=== PATIENT | male | born 1945 | race African-American/Black ===

== ENCOUNTER 2018-05-15 09:06 | Inpatient (IN) | payer OTHER ==
[2018-05-15 09:45] VITALS: BMI 28.2
--- NOTE | 2018-05-15 14:41 | HP ---
COWS - Scale Resting Pulse: 0= [place] 80 or Below Sweatin= Chills/Flushing Restless Observation: 3= Extraneous Movement Pupil Size: 1= Pupils >than Normal Bone or Joint Aches: 2= Severe Diffuse Aches Runny Nose/ Eye Tearin= Runny Nose/Eyes GI Upset > 30mins: 2= Nausea/Diarrhea Tremor Observation: 2= Slight Tremor Visible Yawning Observation: 1= 1-2x During Session Anxiety or Irritability: 2=Irritable/Anxious Goose Flesh Skin: 0=Smooth Skin COWS Score: 16 Admission ROS S - HPI Chief Complaint: i need help to stop using oxycontin and fantanyl patch,send in by pdm, never been in detox before requested by pmd for detox see attached letter htn, [place] both eyes knee replacemant left 10/2014,right 12/2014 arthosopic surgery left shoulder in 2015 needed help to stop using Allergies/Adverse Reactions: Allergies Allergy/AdvReac Type Severity Reaction Status Date / Time penicillin G Allergy Severe Rash Verified 05/15/18 10:13 History of Present Illness: this 72 years old male with oxycontin dependence,and fatanyl patch; has letter from pmd for patient to be detoxed Exam Limitations: No Limitations - Ebola screening Have you traveled outside of the country in the last 21 days: No Have you had contact with anyone from an Ebola affected area: No Have you been sick,other than usual withdrawal symptoms: No Do you have a fever: No - Review of Systems Constitutional: Chills, Loss of Appetite, Malaise, Night Sweats, Changes in sleep, Weakness EENT: reports: Tearing, Nose Congestion Respiratory: reports: No Symptoms reported Cardiac: reports: No Symptoms Reported GI: reports: Nausea, Poor Appetite, Abdominal cramping : reports: No Symptoms Reported Musculoskeletal: reports: Back Pain, Joint Pain, Muscle Pain, Joint Stiffness (s /p bilaterl knee replacement arthroscopic surgery left shoulder) Integumentary: reports: Dryness Neuro: reports: No Symptoms reported, Headache, Tremors Endocrine: reports: No Symptoms Reported Hematology: reports: No Symptoms Reported Psychiatric: reports: No Sypmtoms Reported, Judgement Intact, Mood/Affect Appropiate, Orientated x3 Patient History - Patient Medical History Hx Anemia: No Hx Asthma: No Hx Chronic Obstructive Pulmonary Disease (COPD): No Hx Cancer: No Hx Cardiac Disorders: No Hx Congestive Heart Failure: No Hx Hypertension: Yes (on med) Hx Hypercholesterolemia: No Hx Pacemaker: No HX Cerebrovascular Accident: No Hx Seizures: No Hx Dementia: No Hx Diabetes: No Hx Gastrointestinal Disorders: No Hx Liver Disease: No Hx Genitourinary Disorders: No Hx Sexually Transmitted Disorders: No Hx Renal Disease (ESRD): No Hx Thyroid Disease: No Hx Human Immunodeficiency Virus (HIV): No (last 2016 negative) Hx Hepatitis C: No Hx Depression: No Hx Suicide Attempt: No Hx Bipolar Disorder: No Hx Schizophrenia: No Other Medical History: no suicidal ,no homicidal - Patient Surgical History Past Surgical History: Yes Hx Neurologic Surgery: No Hx Cataract Extraction: No Hx Cardiac Surgery: No Hx Lung Surgery: No Hx Breast Surgery: No Hx Breast Biopsy: No Hx Abdominal Surgery: No Hx Appendectomy: No Hx Cholecystectomy: No Hx Genitourinary Surgery: No Hx Section: No Hx Orthopedic Surgery: Yes (bilateral knee replacement/left shoulder) Anesthesia Reaction: No - PPD History Previous Implant?: Yes Documented Results: Negative w/o proof Implanted On Prior R Admission?: No PPD to be Administered?: Yes - Smoking Cessation Smoking history: Former smoker Have you smoked in the past 12 months: No If you are a former smoker, when did you quit?: 2001 Hx Chewing Tobacco Use: No Initiated information on smoking cessation: No - Substance & Tx. History Hx Alcohol Use: Yes Hx Substance Use: Yes Substance Use Type: Opiates Hx Substance Use Treatment: No - Substances Abused Oxycodone (prescribed) Route: Oral Frequency: Daily Amount used: 2 tabs. (10-325 mg.) QID Age of first use: 66 Date of Last Use: 05/15/18 Fentanyl patch (prescribed) Route: patch Amount used: 75 mcg. q3 days Age of first use: 67 Date of Last Use: 05/14/18 Family Disease History - Family Disease History Family History: Denies Family Disease History: Other: Father (alcohol,) Admission Physical Exam [facility] - Vital Signs Vital Signs: Vital Signs - 24 hr 05/15/18 09:42 Temperature 98.9 F Pulse Rate 80 Respiratory 18 Rate Blood Pressure 99/68 - Physical General Appearance: Yes: Moderate Distress, Tremorous, Irritable, Sweating, Anxious HEENTM: Yes: Normal ENT Inspection, JAREN, Pharynx Normal Respiratory: Yes: Lungs Clear, Normal Breath Sounds, No Respiratory Distress Neck: Yes: Within Normal Limits, Trachea in good position, Thyroid enlarged Breast: Yes: Within Normal Limits Cardiology: Yes: Within Normal Limits, Regular Rhythm, Regular Rate, S1, S2 Abdominal: Yes: Within Normal Limits, Normal Bowel Sounds, Non Tender, Soft Genitourinary: Yes: Within Normal Limits Back: Yes: Muscle Spasm Musculoskeletal: Yes: Back pain, Muscle Pain Extremities: Yes: Normal Range of Motion, Tremors, Other (scars both knees) Neurological: Yes: business supervisor II-XII NML intact, Fully Oriented, Alert, Motor Strength 5/5 Integumentary: Yes: Dry Lymphatic: Yes: Within Normal Limits - Diagnostic (1) Opioid dependence with withdrawal Current Visit: Yes Status: Acute (2) Glaucoma, both eyes Current Visit: Yes Status: Acute (3) Essential hypertension Current Visit: Yes Status: Acute (4) Knee joint replacement status Current Visit: Yes Status: Acute Cleared for Admission [facility] - Detox or Rehab [facility] Level of Care: Medically Managed Detox Regimen/Protocol: Methadone [facility] Breath Alcohol Content Breath Alcohol Content: 0 Urine Drug Screen - Results Drug Screen Negative: No Urine Drug Screen Results: OXY-Oxycodone, FEN-Fentanyl
[2018-05-15] MEDS ORDERED: P-EPHED 60MG/TRIPROLIDI 2.5MG TABLET PO PRN (14:53)
[2018-05-15] MEDS ORDERED: guaiFENesin/D-METHORPHAN HB 10 ML UNIT-DOSE CUPS PO PRN (14:53)
[2018-05-15] MEDS ORDERED: LOPERAMIDE HCL 2 MG CAPSULE PO PRN (14:53)
[2018-05-15] MEDS ORDERED: MAG HYDROX/AL HYDROX/SIMETH 30 ML UNIT-DOSE CUP PO PRN (14:53)
[2018-05-15] MEDS ORDERED: MAGNESIUM CITRATE 300 ML BOTTLE PO PRN (14:53)
[2018-05-15] MEDS ORDERED: MAGNESIUM HYDROX 2400MG/30ML ORAL SUSPENSION 30 ML CUP PO PRN (14:53)
[2018-05-15] MEDS ORDERED: MENTHOL/PHENOL 1 EACH UD MM PRN (14:53)
[2018-05-15] MEDS ORDERED: METHADONE HCL 10 MG TABLET (FOR DETOX USE ONLY) PO ONE ×2 (15:30→23:00)
--- NOTE | 2018-05-15 17:42 | EKG ---
Test Reason : Blood Pressure : / mmHG Vent. Rate : 061 BPM Atrial Rate : 061 BPM P-R Int : 212 ms QRS Dur : 098 ms QT Int : 402 ms P-R-T Axes : 046 -28 016 degrees QTc Int : 404 ms SINUS RHYTHM WITH 1ST DEGREE A-V BLOCK POSSIBLE LEFT ATRIAL ENLARGEMENT BORDERLINE ECG NO PREVIOUS ECGS AVAILABLE Confirmed by Lizandro Sosa MD ([id number]) on 05/15/2018 5:41:37 PM Referred By: Confirmed By:Lizandro Sosa MD
[2018-05-15 20:58] LABS: URINE APPEARANCE CLEAR; URINE BILIRUBIN NEGATIVE (<2.0 mg/dL); URINE COLOR LTYELLOW; URINE GLUCOSE (UA) NEGATIVE (NEGATIVE); URINE KETONE NEGATIVE (NEGATIVE); URINE LEUK ESTERASE NEGATIVE (NEGATIVE); URINE NITRITE NEGATIVE (NEGATIVE); URINE PROTEIN NEGATIVE (NEGATIVE); URINE UROBILINOGEN NEGATIVE mg/dL (0.2-1.0)
[2018-05-15] MEDS: diazePAM 5 MG TABLET PO PRN (21:23)
[2018-05-15] MEDS: IBUPROFEN 400 MG TABLET (FP) PO PRN (21:23)
[2018-05-15] MEDS: LATANOPROST 0.005% OPHTH SOLN 2.5ML BOTTLE OU SCH (21:26)
[2018-05-15] MEDS: THIAMINE HCL 100 MG TABLET (FP) PO SCH (21:26)
[2018-05-15] MEDS: BRIMONIDINE TARTRATE 0.15% OPHTHALMIC 5 ML BOTTLE OU SCH (21:27)
[2018-05-15] MEDS ORDERED: MELATONIN 5 MG TABLETS PO PRN (22:00)
[2018-05-16] MEDS ORDERED: METHADONE HCL 10 MG TABLET (FOR DETOX USE ONLY) PO ONE (10:00)
[2018-05-16] MEDS: COLCHICINE 0.6 MG TABLET (FP) PO SCH (10:35)
[2018-05-16] MEDS: amLODIPine BESYLATE 10 MG TABLET (FP) PO SCH (10:36)
[2018-05-16] MEDS: BRIMONIDINE TARTRATE 0.15% OPHTHALMIC 5 ML BOTTLE OU SCH ×2 (10:36→21:02)
[2018-05-16] MEDS: PRENATAL VITAMINS W/ FOLIC ACID TABLET (FP) PO SCH (10:36)
[2018-05-16] MEDS: ACETAMINOPHEN 325 MG TABLET (FP) PO PRN (10:36)
[2018-05-16] MEDS: diazePAM 5 MG TABLET PO PRN ×2 (10:36→21:01)
--- NOTE | 2018-05-16 12:04 | PN ---
[facility] COWS - Scale Resting Pulse: 1= [place] 81-100 Sweatin= Chills/Flushing Restless Observation: 1= Difficult to Sit Still Pupil Size: 1= Pupils >than Normal Bone or Joint Aches: 2= Severe Diffuse Aches Runny Nose/ Eye Tearin= Runny Nose/Eyes GI Upset > 30mins: 1= Stomach Cramp Tremor Observation of Outstretched Hands: 1= Tremor [place], Not Seen Yawning Observation: 0= None Anxiety or Irritability: 2=Irritable/Anxious Goose Flesh Skin: 0=Smooth Skin COWS Score: 12 [facility] Progress Note (SOAP) Subjective: interrupted sleep, sweats, , headache, lbp,, eber knee pains Objective: 05/16/18 12:03 Vital Signs Temperature 97.5 F L 05/16/18 09:28 Pulse Rate 89 05/16/18 09:28 Respiratory Rate 18 05/16/18 09:28 Blood Pressure 106/72 05/16/18 09:28 O2 Sat by Pulse Oximetry (%) Laboratory Tests 05/15/18 15:58 Urine Color Ltyellow Urine Appearance Clear Urine pH 5.0 Ur Specific [place] 1.010 Urine Protein Negative Urine Glucose (UA) Negative Urine Ketones Negative Urine Blood Negative Urine Nitrite Negative Urine Bilirubin Negative Urine Urobilinogen Negative Ur Leukocyte Esterase Negative pending labs pt aox3 in nad ambulting Assessment: 05/16/18 12:04 withdrawaL SX'S Plan: CONT. DETOX INCREASE FLUIDS F/UP PENDING LABS
[2018-05-16 14:22] LABS: HEMOGLOBIN 12.2 GM/dL (11.7-16.9); MCH 25.1 pg (25.7-33.7); MCHC 30.6 g/dl (32.0-35.9); MEAN PLT VOLUME 10.1 fl (7.5-11.1); PLATELET COUNT 184 K/MM3 (134-434); RBC 4.87 M/mm3 (4.00-5.60); RDW 14.3 % (11.9-15.9); WHITE BLOOD COUNT 6.6 K/mm3 (4.0-10.0)
[2018-05-16 15:03] LABS: ALBUMIN 3.7 g/dl (3.4-5.0); ALK PHOS 80 U/L (45-117); ANION GAP 8 MMOL/L (8-16); BILIRUBIN,TOTAL 0.3 mg/dL (0.2-1); BLOOD UREA NITROGEN 20 mg/dL (7-18); CALCIUM 9.5 mg/dL (8.5-10.1); CHLORIDE 108 mmol/L (98-107); CO2 26 mmol/L (21-32); CREATININE 1.1 mg/dL (0.55-1.3); GLUCOSE,RANDOM 86 mg/dL (74-106); POTASSIUM 4.4 mmol/L (3.5-5.1); SGOT/AST 24 U/L (15-37); SGPT/ALT 29 U/L (13-61); SODIUM 142 mmol/L (136-145); TOT PROT 7.8 g/dl (6.4-8.2)
[2018-05-16] MEDS: THIAMINE HCL 100 MG TABLET (FP) PO SCH (21:01)
[2018-05-16] MEDS: IBUPROFEN 400 MG TABLET (FP) PO PRN (21:01)
[2018-05-16] MEDS: LATANOPROST 0.005% OPHTH SOLN 2.5ML BOTTLE OU SCH (21:03)
[2018-05-17] MEDS: diazePAM 5 MG TABLET PO PRN ×2 (04:15→10:32)
[2018-05-17] MEDS: IBUPROFEN 400 MG TABLET (FP) PO PRN (04:15)
[2018-05-17] MEDS: ACETAMINOPHEN 325 MG TABLET (FP) PO PRN ×2 (09:51→22:21)
[2018-05-17] MEDS ORDERED: METHADONE HCL 5 MG TABLET (FOR DETOX USE ONLY) PO ONE (10:00)
[2018-05-17] MEDS: PRENATAL VITAMINS W/ FOLIC ACID TABLET (FP) PO SCH (10:29)
[2018-05-17] MEDS: amLODIPine BESYLATE 10 MG TABLET (FP) PO SCH (10:29)
[2018-05-17] MEDS: COLCHICINE 0.6 MG TABLET (FP) PO SCH (10:29)
[2018-05-17] MEDS: BRIMONIDINE TARTRATE 0.15% OPHTHALMIC 5 ML BOTTLE OU SCH ×2 (10:29→22:19)
[2018-05-17] MEDS ORDERED: BACLOFEN 10 MG TABLET (FP) PO ONE (10:30)
[2018-05-17] MEDS ORDERED: cloNIDine HCL 0.1 MG TABLET PO ONE (10:31)
--- NOTE | 2018-05-17 12:45 | PN ---
S COWS - Scale Resting Pulse: 1= [place] 81-100 Sweatin= Chills/Flushing Restless Observation: 1= Difficult to Sit Still Pupil Size: 1= Pupils >than Normal Bone or Joint Aches: 2= Severe Diffuse Aches Runny Nose/ Eye Tearin= Nasal Congestion GI Upset > 30mins: 1= Stomach Cramp Tremor Observation of Outstretched Hands: 1= Tremor [place], Not Seen Yawning Observation: 1= 1-2x During Session Anxiety or Irritability: 1=Feels Anxious/Irritable Goose Flesh Skin: 0=Smooth Skin COWS Score: 11 [facility] Progress Note (SOAP) Subjective: body ache joints pain tremor sweat bilaterally knees replacement taking opioid based pain killer x 6-7 years recommend methadone or suboxone program Objective: 05/17/18 12:46 Vital Signs Temperature 97.7 F 05/17/18 09:43 Pulse Rate 84 05/17/18 09:43 Respiratory Rate 19 05/17/18 09:43 Blood Pressure 141/91 05/17/18 09:43 O2 Sat by Pulse Oximetry (%) Laboratory Last Values WBC 6.6 K/mm3 (4.0-10.0) 05/16/18 07:00 RBC 4.87 M/mm3 (4.00-5.60) 05/16/18 07:00 Hgb 12.2 GM/dL (11.7-16.9) 05/16/18 07:00 Hct 40.0 % (35.4-49) 05/16/18 07:00 MCV 82.0 fl (80-96) 05/16/18 07:00 MCH 25.1 pg (25.7-33.7) L 05/16/18 07:00 MCHC 30.6 g/dl (32.0-35.9) L 05/16/18 07:00 RDW 14.3 % (11.9-15.9) 05/16/18 07:00 Plt Count 184 K/MM3 (134-434) 05/16/18 07:00 MPV 10.1 fl (7.5-11.1) 05/16/18 07:00 Sodium 142 mmol/L (136-145) 05/16/18 07:00 Potassium 4.4 mmol/L (3.5-5.1) 05/16/18 07:00 Chloride 108 mmol/L (98-107) H 05/16/18 07:00 Carbon Dioxide 26 mmol/L (21-32) 05/16/18 07:00 Anion Gap 8 MMOL/L (8-16) 05/16/18 07:00 BUN 20 mg/dL (7-18) H 05/16/18 07:00 Creatinine 1.1 mg/dL (0.55-1.3) 05/16/18 07:00 Creat Clearance w eGFR > 60 (>60) 05/16/18 07:00 Random Glucose 86 mg/dL (74-106) 05/16/18 07:00 Calcium 9.5 mg/dL (8.5-10.1) 05/16/18 07:00 Total Bilirubin 0.3 mg/dL (0.2-1) 05/16/18 07:00 AST 24 U/L (15-37) 05/16/18 07:00 ALT 29 U/L (13-61) 05/16/18 07:00 Alkaline Phosphatase 80 U/L (45-117) 05/16/18 07:00 Total Protein 7.8 g/dl (6.4-8.2) 05/16/18 07:00 Albumin 3.7 g/dl (3.4-5.0) 05/16/18 07:00 Urine Color Ltyellow 05/15/18 15:58 Urine Appearance Clear 05/15/18 15:58 Urine pH 5.0 (5.0-8.0) 05/15/18 15:58 Ur Specific [place] 1.010 (1.010-1.035) 05/15/18 15:58 Urine Protein Negative (NEGATIVE) 05/15/18 15:58 Urine Glucose (UA) Negative (NEGATIVE) 05/15/18 15:58 Urine Ketones Negative (NEGATIVE) 05/15/18 15:58 Urine Blood Negative (NEGATIVE) 05/15/18 15:58 Urine Nitrite Negative (NEGATIVE) 05/15/18 15:58 Urine Bilirubin Negative (<2.0 mg/dL) 05/15/18 15:58 Urine Urobilinogen Negative mg/dL (0.2-1.0) 05/15/18 15:58 Ur Leukocyte Esterase Negative (NEGATIVE) 05/15/18 15:58 RPR Titer Nonreactive (NONREACTIVE) 05/16/18 07:00 lab noted Assessment: 05/17/18 12:46 withdrawal sx Plan: continue detox
[2018-05-17] MEDS: LATANOPROST 0.005% OPHTH SOLN 2.5ML BOTTLE OU SCH (22:19)
[2018-05-17] MEDS: THIAMINE HCL 100 MG TABLET (FP) PO SCH (22:19)
[2018-05-18] MEDS: IBUPROFEN 400 MG TABLET (FP) PO PRN (03:41)
[2018-05-18] MEDS ORDERED: METHADONE HCL 5 MG TABLET (FOR DETOX USE ONLY) PO ONE (10:00)
[2018-05-18] MEDS: amLODIPine BESYLATE 10 MG TABLET (FP) PO SCH (10:03)
[2018-05-18] MEDS: COLCHICINE 0.6 MG TABLET (FP) PO SCH (10:03)
[2018-05-18] MEDS: PRENATAL VITAMINS W/ FOLIC ACID TABLET (FP) PO SCH (10:03)
[2018-05-18] MEDS: BRIMONIDINE TARTRATE 0.15% OPHTHALMIC 5 ML BOTTLE OU SCH ×2 (10:06→22:15)
--- NOTE | 2018-05-18 14:22 | PN ---
[facility] Progress Note Note: PATIENT CONTINUES WITH DETOX. C/O BODY ACHES. Vital Signs Temperature 98.2 F 05/18/18 14:15 Pulse Rate 97 H 05/18/18 14:15 Respiratory Rate 18 05/18/18 14:15 Blood Pressure 127/81 05/18/18 14:15 O2 Sat by Pulse Oximetry (%) Laboratory Tests 05/15/18 05/16/18 05/16/18 15:58 07:00 07:00 WBC 6.6 RBC 4.87 Hgb 12.2 Hct 40.0 MCV 82.0 MCH 25.1 L MCHC 30.6 L RDW 14.3 Plt Count 184 MPV 10.1 Sodium 142 Potassium 4.4 Chloride 108 H Carbon Dioxide 26 Anion Gap 8 BUN 20 H Creatinine 1.1 Creat Clearance w eGFR > 60 Random Glucose 86 Calcium 9.5 Total Bilirubin 0.3 AST 24 ALT 29 Alkaline Phosphatase 80 Total Protein 7.8 Albumin 3.7 Urine Color Ltyellow Urine Appearance Clear Urine pH 5.0 Ur Specific [place] 1.010 Urine Protein Negative Urine Glucose (UA) Negative Urine Ketones Negative Urine Blood Negative Urine Nitrite Negative Urine Bilirubin Negative Urine Urobilinogen Negative Ur Leukocyte Esterase Negative RPR Titer 05/16/18 07:00 WBC RBC Hgb Hct MCV MCH MCHC RDW Plt Count MPV Sodium Potassium Chloride Carbon Dioxide Anion Gap BUN Creatinine Creat Clearance w eGFR Random Glucose Calcium Total Bilirubin AST ALT Alkaline Phosphatase Total Protein Albumin Urine Color Urine Appearance Urine pH Ur Specific [place] Urine Protein Urine Glucose (UA) Urine Ketones Urine Blood Urine Nitrite Urine Bilirubin Urine Urobilinogen Ur Leukocyte Esterase RPR Titer Nonreactive SKIN WARM AND DRY CAR S1S2 RESP CTA BL EXT FULL ROM, NO TREMORS ALERT AND ORIENTED X 3 A/P WITHDRAWAL SX CONTINUE DETOX ENCOURAGE ORAL FLUIDS CONTINUE TO MONITOR
[2018-05-18] MEDS: ACETAMINOPHEN 325 MG TABLET (FP) PO PRN (15:13)
[2018-05-18] MEDS: LATANOPROST 0.005% OPHTH SOLN 2.5ML BOTTLE OU SCH (22:14)
[2018-05-18] MEDS: THIAMINE HCL 100 MG TABLET (FP) PO SCH (22:14)
[2018-05-19] MEDS: IBUPROFEN 400 MG TABLET (FP) PO PRN ×2 (03:01→08:47)
[2018-05-19 09:28] VITALS: BP 135/83; PULSE 79; TEMP 97.5
[2018-05-19] MEDS: COLCHICINE 0.6 MG TABLET (FP) PO SCH (09:58)
[2018-05-19] MEDS: amLODIPine BESYLATE 10 MG TABLET (FP) PO SCH (09:58)
[2018-05-19] MEDS: PRENATAL VITAMINS W/ FOLIC ACID TABLET (FP) PO SCH (09:59)
[2018-05-19] MEDS: BRIMONIDINE TARTRATE 0.15% OPHTHALMIC 5 ML BOTTLE OU SCH (09:59)
[2018-05-19] MEDS ORDERED: METHADONE HCL 10 MG TABLET (FOR DETOX USE ONLY) PO ONE (10:00)
--- NOTE | 2018-05-19 10:23 | PN ---
[facility] Progress Note (SOAP) Subjective: Wants to go home. States I feel fine and I will not be taking any more meds. States will throw out medications at home or give to the pharmacy. States was taking prescribed opiates for pain. States will take OTC pain medication ( tylenol or ibuprofen) Objective: A&O x 3. Gait steady. No tremors or sweating. Vital Signs 05/19/18 05/19/18 05/19/18 03:30 07:19 09:28 Temperature 97.7 F 97.5 F L Pulse Rate 73 79 Respiratory 18 18 18 Rate Blood Pressure 126/67 135/83 Laboratory Last Values WBC 6.6 K/mm3 (4.0-10.0) 05/16/18 07:00 RBC 4.87 M/mm3 (4.00-5.60) 05/16/18 07:00 Hgb 12.2 GM/dL (11.7-16.9) 05/16/18 07:00 Hct 40.0 % (35.4-49) 05/16/18 07:00 MCV 82.0 fl (80-96) 05/16/18 07:00 MCH 25.1 pg (25.7-33.7) L 05/16/18 07:00 MCHC 30.6 g/dl (32.0-35.9) L 05/16/18 07:00 RDW 14.3 % (11.9-15.9) 05/16/18 07:00 Plt Count 184 K/MM3 (134-434) 05/16/18 07:00 MPV 10.1 fl (7.5-11.1) 05/16/18 07:00 Sodium 142 mmol/L (136-145) 05/16/18 07:00 Potassium 4.4 mmol/L (3.5-5.1) 05/16/18 07:00 Chloride 108 mmol/L (98-107) H 05/16/18 07:00 Carbon Dioxide 26 mmol/L (21-32) 05/16/18 07:00 Anion Gap 8 MMOL/L (8-16) 05/16/18 07:00 BUN 20 mg/dL (7-18) H 05/16/18 07:00 Creatinine 1.1 mg/dL (0.55-1.3) 05/16/18 07:00 Creat Clearance w eGFR > 60 (>60) 05/16/18 07:00 Random Glucose 86 mg/dL (74-106) 05/16/18 07:00 Calcium 9.5 mg/dL (8.5-10.1) 05/16/18 07:00 Total Bilirubin 0.3 mg/dL (0.2-1) 05/16/18 07:00 AST 24 U/L (15-37) 05/16/18 07:00 ALT 29 U/L (13-61) 05/16/18 07:00 Alkaline Phosphatase 80 U/L (45-117) 05/16/18 07:00 Total Protein 7.8 g/dl (6.4-8.2) 05/16/18 07:00 Albumin 3.7 g/dl (3.4-5.0) 05/16/18 07:00 Urine Color Ltyellow 05/15/18 15:58 Urine Appearance Clear 05/15/18 15:58 Urine pH 5.0 (5.0-8.0) 05/15/18 15:58 Ur Specific [place] 1.010 (1.010-1.035) 05/15/18 15:58 Urine Protein Negative (NEGATIVE) 05/15/18 15:58 Urine Glucose (UA) Negative (NEGATIVE) 05/15/18 15:58 Urine Ketones Negative (NEGATIVE) 05/15/18 15:58 Urine Blood Negative (NEGATIVE) 05/15/18 15:58 Urine Nitrite Negative (NEGATIVE) 05/15/18 15:58 Urine Bilirubin Negative (<2.0 mg/dL) 05/15/18 15:58 Urine Urobilinogen Negative mg/dL (0.2-1.0) 05/15/18 15:58 Ur Leukocyte Esterase Negative (NEGATIVE) 05/15/18 15:58 RPR Titer Nonreactive (NONREACTIVE) 05/16/18 07:00 Labs reviewed. Assessment: Opiate withdrawal. Requesting to leave AMA Plan: Discussed loss of tolerance and rsik of overdose if restarts opiates. Encouraged to destroy opiate at home or return to local pharmacy. Encouraged to f/u w/ PCP and use only OTC medications for pain management. Patient leaving AMA.
--- NOTE | 2018-05-19 10:26 | DS ---
[facility] Detox Discharge Summary Admission Date: 05/15/18 Discharge Date: 05/19/18 - History Present History: Opioid Dependence Additional Comments: Admitted for withdrawal symptoms from prescribed opiates. Pertinent Past History: Patient w/ hx chronic pain and received years of oxycodone and fentanyl. Comes for with withdrawal and request for detox from prescribed opiates. - Physical Exam Results Vital Signs: Vital Signs Temperature 97.5 F L 05/19/18 09:28 Pulse Rate 79 05/19/18 09:28 Respiratory Rate 18 05/19/18 09:28 Blood Pressure 135/83 05/19/18 09:28 O2 Sat by Pulse Oximetry (%) Pertinent Admission Physical Exam Findings: Presented with withdrawal symptoms because of stopping prescribed opiates for pain management. Patient's PCP in agreement w/opiate detox. Laboratory Last Values WBC 6.6 K/mm3 (4.0-10.0) 05/16/18 07:00 RBC 4.87 M/mm3 (4.00-5.60) 05/16/18 07:00 Hgb 12.2 GM/dL (11.7-16.9) 05/16/18 07:00 Hct 40.0 % (35.4-49) 05/16/18 07:00 MCV 82.0 fl (80-96) 05/16/18 07:00 MCH 25.1 pg (25.7-33.7) L 05/16/18 07:00 MCHC 30.6 g/dl (32.0-35.9) L 05/16/18 07:00 RDW 14.3 % (11.9-15.9) 05/16/18 07:00 Plt Count 184 K/MM3 (134-434) 05/16/18 07:00 MPV 10.1 fl (7.5-11.1) 05/16/18 07:00 Sodium 142 mmol/L (136-145) 05/16/18 07:00 Potassium 4.4 mmol/L (3.5-5.1) 05/16/18 07:00 Chloride 108 mmol/L (98-107) H 05/16/18 07:00 Carbon Dioxide 26 mmol/L (21-32) 05/16/18 07:00 Anion Gap 8 MMOL/L (8-16) 05/16/18 07:00 BUN 20 mg/dL (7-18) H 05/16/18 07:00 Creatinine 1.1 mg/dL (0.55-1.3) 05/16/18 07:00 Creat Clearance w eGFR > 60 (>60) 05/16/18 07:00 Random Glucose 86 mg/dL (74-106) 05/16/18 07:00 Calcium 9.5 mg/dL (8.5-10.1) 05/16/18 07:00 Total Bilirubin 0.3 mg/dL (0.2-1) 05/16/18 07:00 AST 24 U/L (15-37) 05/16/18 07:00 ALT 29 U/L (13-61) 05/16/18 07:00 Alkaline Phosphatase 80 U/L (45-117) 05/16/18 07:00 Total Protein 7.8 g/dl (6.4-8.2) 05/16/18 07:00 Albumin 3.7 g/dl (3.4-5.0) 05/16/18 07:00 Urine Color Ltyellow 05/15/18 15:58 Urine Appearance Clear 05/15/18 15:58 Urine pH 5.0 (5.0-8.0) 05/15/18 15:58 Ur Specific [place] 1.010 (1.010-1.035) 05/15/18 15:58 Urine Protein Negative (NEGATIVE) 05/15/18 15:58 Urine Glucose (UA) Negative (NEGATIVE) 05/15/18 15:58 Urine Ketones Negative (NEGATIVE) 05/15/18 15:58 Urine Blood Negative (NEGATIVE) 05/15/18 15:58 Urine Nitrite Negative (NEGATIVE) 05/15/18 15:58 Urine Bilirubin Negative (<2.0 mg/dL) 05/15/18 15:58 Urine Urobilinogen Negative mg/dL (0.2-1.0) 05/15/18 15:58 Ur Leukocyte Esterase Negative (NEGATIVE) 05/15/18 15:58 RPR Titer Nonreactive (NONREACTIVE) 05/16/18 07:00 Labs reviewed. - Treatment Hospital Course: Detox Protocol Followed (Did not complete protocol), Discharged Condition Good (Alert and oriented. Gait steady.) - Medication Discharge Medications: Ambulatory Orders Amlodipine Besylate [Norvasc -] 10 mg PO DAILY 05/15/18 Brimonidine Tartrate [Alphagan 0.15% -] 1 drop OU BID 05/15/18 Colchicine [Colcrys -] 0.6 mg PO DAILY 05/15/18 Latanoprost 0.005% Eye Drops [Xalatan 0.005% Eye Drops -] 1 drop OU HS 05/15/18 - Diagnosis (1) Opioid dependence with withdrawal Status: Acute (2) Essential hypertension Status: Chronic (3) Glaucoma, both eyes Status: Chronic Qualifiers: Glaucoma type: unspecified Qualified Code(s): H40.9 - Unspecified glaucoma - AMA Did Patient Leave Against Medical Advice: Yes
[2018-05-20] MEDS ORDERED: METHADONE HCL 5 MG TABLET (FOR DETOX USE ONLY) PO ONE (06:00)
== END 2018-05-19 10:46 | disposition home or self-care (01) | DRG 897 ==
LOC: YASAS 09:06 → Y6N 14:22
PROC: HZ2ZZZZ Detoxification Services for Substance Abuse Treatment (ICD-10-PCS; principal; 2018-05-15)
DX: F11.23 Opioid dependence with withdrawal (principal); I10 Essential (primary) hypertension; H40.9 Unspecified glaucoma; Z96.653 Presence of artificial knee joint, bilateral
CPT/HCPCS: 36415; 80053; 81003; 85027; 86593; 93005; 93010; J0475; J0735